=== PATIENT | female | born 1970 | race Caucasian/White ===

== ENCOUNTER 2017-06-06 12:48 | Emergency (ER) | payer OTHER ==
[~2017-06-06] VITALS: Ht 149.9 cm; Wt 64.4 kg
[~2017-06-06 12:48] MED LIST: COUMADIN5 MG PO; DROSPIRENONE-E1 EACH PO; LOVENOX60 MG/0.6 SC
[2017-06-06 13:19] LABS: HEMATOCRIT 43.9 % (36.0-46.0); HEMOGLOBIN 14.8 G/DL (11.9-15.5); MCH 30.8 PG (29.0-34.0); MCHC 33.7 G/DL (30.0-36.0); MCV 91.3 FL (83-99); PLATELET COUNT 295 K/uL (156-360); RBC DIS.WIDTH-CV 12.3 % (11.8-14.6); RBC DIS.WIDTH-SD 41.4 % (39-53); RED BLOOD COUNT 4.81 M/uL (3.80-5.20); WHITE BLOOD COUNT 7.1 K/uL (4.1-10.2)
[2017-06-06 13:28] LABS: CHLORIDE 105 mEq/L (99-109); POTASSIUM 3.9 mEq/L (3.7-5.4); SODIUM 141 mEq/L (136-147)
[2017-06-06 13:30] LABS: GLUCOSE 101 mg/dL (70-99)
[2017-06-06 13:34] LABS: CREATININE 0.8 mg/dL (0.6-1.3); GFR ESTIMATE (CALCULATED) > 59 mL/min/
[2017-06-06 13:35] LABS: UREA NITROGEN (BUN) 12 mg/dL (9-23)
[2017-06-06 13:39] LABS: TROP-I INTERPRETATION NEGATIVE; TROPONIN-I < 0.01 ng/mL (0.0-0.30)
[2017-06-06 18:06] VITALS: BP 101/72
== END 2017-06-06 18:06 | disposition home or self-care (01) ==
LOC: EME 12:48
DX: R07.89 Other chest pain (principal); R11.0 Nausea; Z82.49 Family history of ischemic heart disease and other diseases of the circulatory system; Z86.718 Personal history of other venous thrombosis and embolism; K21.9 Gastro-esophageal reflux disease without esophagitis; Z79.82 Long term (current) use of aspirin; Z88.2 Allergy status to sulfonamides
CPT/HCPCS: 71046; 80048; 84484; 85027; 93005; 99281; 99283